=== PATIENT | female | born 1930 | race Caucasian/White ===

== ENCOUNTER 2017-01-27 15:29 | Emergency (ER) | payer MEDICARE ==
[2017-01-27 15:30] VITALS: BMI 22.9
--- NOTE | 2017-01-27 17:10 | C.PDOC ---
History Of Present Illness 86 yr old female presents to the ER s/p trip and fall in the bathroom, onto her upper back and right side ribs today. Patient denies head injury, LOC, chest pain, SOB, hip pain, back pain, weakness or numbness. 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) Past Medical History Reviewed: Historical Data, Nursing Documentation, Vital Signs Vital Signs: Last Vital Signs Temp 97.8 F 01/27/17 15:54 Pulse 60 01/27/17 15:54 Resp 20 01/27/17 15:54 BP 133/73 01/27/17 15:54 Pulse Ox 98 01/27/17 17:15 - Medical History PMH: Arthritis, HTN, Kidney Stones, Osteoporosis, Rheumatoid Arthritis, Seizures Surgical History: Cholecystectomy - [facility] Procedures BATHING/SHOWERING TECHNIQUES TREATMENT (06/22/15) DESTRUCT PERITONEAL TISS (05/27/14) DRESSING TECHNIQUES TREATMENT (06/22/15) GAIT TRAINING/AMBULAT TREATMENT USING ASSIST EQUIPMENT (06/22/15) GROOMING/PERSONAL HYGIENE TREATMENT (06/22/15) INSERT PACE, SINGL FRIEDA RT RESPN IN CHEST SUBCU/FASCIA, PERC (06/16/15) INSERTION OF PACEMAKER LEAD INTO R VENTRICLE, PERC APPROACH (06/16/15) NEBULIZER THERAPY (05/27/14) OTHER OPEN INCISIONAL HERNIA REPAIR WITH GRAFT OR PROSTHESIS (05/27/14) THERAPEUTIC EXERCISE TREATMENT OF MUSCULOSK WHOLE (06/22/15) Family History: States: No Known Family Hx - Social History Hx Tobacco Use: No Hx Alcohol Use: No Hx Substance Use: No - Immunization History Hx Tetanus Toxoid Vaccination: No Hx Influenza Vaccination: Yes Hx Pneumococcal Vaccination: Yes Review Of Systems Except As Marked, All Systems Reviewed And Found Negative. Cardiovascular: Negative for: Chest Pain Respiratory: Negative for: Shortness of Breath Musculoskeletal: Negative for: Back Pain Neurological: Negative for: Weakness, Numbness Physical Exam - Physical Exam Appears: Non-toxic, In Acute Distress (Mild pain.) Skin: Warm, Dry, No Rash Head: Atraumatic, Normacephalic Oral Mucosa: Moist Neck: Normal, Normal ROM, No Midline Cervical Tenderness, Supple Chest: Symmetrical, Other ((+) T7 and T8 area, mild tenderness to palpation. No abrasion. No ecchymosis. ) Cardiovascular: Rhythm Regular, No Murmur Respiratory: Normal Breath Sounds (Equal bilaterally.), No Rales, No Rhonchi, No Stridor, No Wheezing Back: Normal Inspection, Other (No thoracic or lumbar tenderness. No midline tenderness. ) Extremity: Tenderness (pain with pelvic rocking. ), No Deformity, No Swelling, Other (No hip deformity. ) Neurological/Psych: Oriented x3, Normal Speech, Normal Motor, Normal Sensation ED Course And Treatment O2 Sat by Pulse Oximetry: 98 (RA) Pulse Ox Interpretation: Normal Progress Note: PLAN: X-Ray - Ribs & Chest & Tylenol PO. Disposition Counseled Patient/Family Regarding: Studies Performed, Diagnosis, Need For Followup, Rx Given - Disposition Referrals: Jia Song MD [Medical Doctor] - Disposition: HOME/ ROUTINE Disposition Time: 17:30 Condition: STABLE Additional Instructions: SEGUIMIENTO CON CHINCH[place]A MDICO EN 1-2 CARTAGENA USE MEDICAMENTOS PARA EL DOLOR YOHANNES SEA NECESARIO DEVUELVA A LA EDWIN DE EMERGENCIA SI LOS SNTOMAS EMPEORARAN Prescriptions: Acetaminophen [Tylenol 325mg tab] 650 mg PO Q6 PRN #30 tab PRN Reason: pain/fever Naproxen [Naprosyn Tab] 375 mg PO BID PRN #20 tab PRN Reason: pain Instructions: Rib Contusion (ED), Back Pain (ED) Forms: [facility] (Norwegian) Print Language: INDIAN - POA Present On Arrival: Falls Or Trauma - Clinical Impression Clinical Impression: Contusion of rib on right side - Scribe Statement The provider has reviewed the documentation as recorded by the Scribe Dariana Johansen Provider Attestation: All medical record entries made by the Scribe were at my direction and personally dictated by me. I have reviewed the chart and agree that the record accurately reflects my personal performance of the history, physical exam, medical decision making, and the department course for this patient. I have also personally directed, reviewed, and agree with the discharge instructions and disposition.
[2017-01-27] MEDS ORDERED: Naproxen 550 mg Tab PO STA (17:33)
--- NOTE | 2017-01-27 17:35 | RAD ---
PROCEDURE: Radiographs of the Chest and Right Ribs. HISTORY: RIGHT UPPER BACK PAIN R/O FX COMPARISON: 03/25/2015 single-view chest. TECHNIQUE: Frontal radiograph of the chest and multiple oblique radiographs of the right ribs were obtained. FINDINGS: RIGHT RIBS: No fracture or focal lesion visualized. LUNGS: Clear. PLEURA: No pneumothorax or pleural fluid. CARDIOVASCULAR: No radiographic findings to suggest acute or significant cardiovascular disease. Position/ configuration of pacemaker device: Satisfactory. OTHER FINDINGS: None. IMPRESSION: Unremarkable radiographs of the chest and right ribs. No right rib fracture. No significant interval change compared to the prior examination(s).
[2017-01-27] MEDS ORDERED: Naproxen 550 mg Tab PO ONE (17:40)
[2017-01-27 18:04] VITALS: BP 124/75; PULSE 78; RESP 18; TEMP 98.2; O2SAT 97
== END 2017-01-27 18:04 | disposition home or self-care (01) ==
LOC: C.ER 15:29
DX: S20.211A Contusion of right front wall of thorax, initial encounter (principal); W01.0XXA Fall on same level from slipping, tripping and stumbling without subsequent striking against object, initial encounter; Y92.002 Bathroom of unspecified non-institutional (private) residence as the place of occurrence of the external cause